=== PATIENT | male | born 1955 | race Caucasian/White ===

== ENCOUNTER 2020-11-10 16:32 | Inpatient (IN) | payer OTHER ==
[2020-11-10 21:52] VITALS: BMI 27.8
[2020-11-10] MEDS ORDERED: ACETAMINOPHEN 325 MG TABLET (FP) PO PRN (22:06)
[2020-11-10] MEDS ORDERED: MAG HYDROX/AL HYDROX/SIMETH 30 ML UNIT-DOSE CUP PO PRN (22:06)
[2020-11-10] MEDS ORDERED: MAGNESIUM HYDROX 2400MG/30ML ORAL SUSPENSION 30 ML CUP PO PRN (22:06)
[2020-11-10] MEDS ORDERED: MAGNESIUM CITRATE 300 ML BOTTLE PO PRN (22:06)
[2020-11-10] MEDS ORDERED: LOPERAMIDE HCL 2 MG CAPSULE PO PRN (22:06)
[2020-11-10] MEDS ORDERED: guaiFENesin 200 MG/10 ML 10 ML UNIT-DOSE CUPS PO PRN (22:06)
[2020-11-10] MEDS ORDERED: IBUPROFEN 400 MG TABLET (FP) PO PRN (22:06)
[2020-11-10] MEDS ORDERED: NICOTINE POLACRILEX 2 MG GUM BC PRN (22:06)
[2020-11-10] MEDS ORDERED: P-EPHED 60MG/TRIPROLIDI 2.5MG TABLET PO PRN (22:06)
[2020-11-11] MEDS: MELATONIN 5 MG TABLETS PO SCH ×2 (00:27→21:00)
[2020-11-11] MEDS: hydrOXYzine PAMOATE 25 MG CAPSULE (FP) PO SCH ×5 (06:47→21:00)
[2020-11-11] MEDS: TAMSULOSIN HCL 0.4 MG CAP PO SCH (08:20)
[2020-11-11] MEDS ORDERED: NIFEDIPINE 30 MG PO SCH (10:00)
[2020-11-11] MEDS ORDERED: TAMSULOSIN HCL 0.4 MG CAP PO SCH (10:00)
[2020-11-11 10:08] LABS: HEMATOCRIT 37.5 % (35.4-49); HEMOGLOBIN 12.4 GM/dL (11.7-16.9); MCH 28.3 pg (25.7-33.7); MCHC 33.1 g/dl (32.0-35.9); MEAN CELL VOLUME 85.5 fl (80-96); MEAN PLT VOLUME 9.5 fl (7.5-11.1); PLATELET COUNT 276 K/MM3 (134-434); RBC 4.38 M/mm3 (4.00-5.60); RDW 14.2 % (11.9-15.9); WHITE BLOOD COUNT 8.6 K/mm3 (4.0-10.0)
[2020-11-11 10:13] LABS: ALBUMIN 3.3 g/dl (3.4-5.0); CALCIUM 8.9 mg/dL (8.5-10.1)
[2020-11-11 10:17] LABS: CREATININE 1.2 mg/dL (0.55-1.3)
[2020-11-11 10:18] LABS: TOT PROT 7.2 g/dl (6.4-8.2)
[2020-11-11 10:21] LABS: BILIRUBIN,TOTAL 0.2 mg/dL (0.2-1)
[2020-11-11] MEDS: NIFEdipine E.R. 30 MG TABLET PO SCH (10:21)
[2020-11-11] MEDS: PANTOPRAZOLE 20 MG TABLET PO SCH (10:21)
[2020-11-11] MEDS: PRENATAL VITAMINS W/ FOLIC ACID TABLET (FP) PO SCH (10:21)
[2020-11-11] MEDS: ASPIRIN 81 MG CHEWABLE TABLETS PO SCH (10:21)
[2020-11-11] MEDS: NICOTINE 7 MG/24 HOURS TOPICAL PATCH TD SCH (10:22)
[2020-11-11] MEDS: FINASTERIDE 5 MG TABLET (FP) PO SCH (12:14)
[2020-11-11] MEDS ORDERED: PT OWN MED DRAWER 7, Y5N ONE (16:00)
[2020-11-11 20:34] LABS: URINE APPEARANCE CLEAR; URINE BILIRUBIN NEGATIVE (NEGATIVE); URINE COLOR YELLOW; URINE GLUCOSE (UA) 3+ (NEGATIVE); URINE KETONE NEGATIVE (NEGATIVE); URINE LEUK ESTERASE NEGATIVE (NEGATIVE); URINE NITRITE NEGATIVE (NEGATIVE); URINE PROTEIN NEGATIVE (NEGATIVE); URINE UROBILINOGEN 0.2 mg/dL (0.2-1.0)
[2020-11-11] MEDS: THIAMINE HCL 100 MG TABLET (FP) PO SCH (21:00)
[2020-11-11] MEDS: INSULIN GLARGINE SQ SCH (21:03)
[2020-11-12] MEDS: hydrOXYzine PAMOATE 25 MG CAPSULE (FP) PO SCH ×5 (06:26→21:33)
[2020-11-12] MEDS: TAMSULOSIN HCL 0.4 MG CAP PO SCH (07:50)
[2020-11-12] MEDS: FINASTERIDE 5 MG TABLET (FP) PO SCH (10:22)
[2020-11-12] MEDS: ASPIRIN 81 MG CHEWABLE TABLETS PO SCH (10:22)
[2020-11-12] MEDS: PRENATAL VITAMINS W/ FOLIC ACID TABLET (FP) PO SCH (10:23)
[2020-11-12] MEDS: PANTOPRAZOLE 20 MG TABLET PO SCH (10:23)
[2020-11-12] MEDS: NICOTINE 7 MG/24 HOURS TOPICAL PATCH TD SCH (10:23)
[2020-11-12] MEDS: NIFEdipine E.R. 30 MG TABLET PO SCH (14:22)
[2020-11-12] MEDS ORDERED: PT OWN MED DRAWER 7, Y5N ONE (19:03)
[2020-11-12] MEDS: INSULIN GLARGINE SQ SCH (20:59)
[2020-11-12] MEDS: MELATONIN 5 MG TABLETS PO SCH (21:01)
[2020-11-12] MEDS: THIAMINE HCL 100 MG TABLET (FP) PO SCH (21:01)
[2020-11-13] MEDS: hydrOXYzine PAMOATE 25 MG CAPSULE (FP) PO SCH ×2 (06:25→10:25)
[2020-11-13] MEDS: TAMSULOSIN HCL 0.4 MG CAP PO SCH (07:49)
[2020-11-13] MEDS: PRENATAL VITAMINS W/ FOLIC ACID TABLET (FP) PO SCH (10:24)
[2020-11-13] MEDS: ASPIRIN 81 MG CHEWABLE TABLETS PO SCH (10:25)
[2020-11-13] MEDS: FINASTERIDE 5 MG TABLET (FP) PO SCH (10:25)
[2020-11-13] MEDS: PANTOPRAZOLE 20 MG TABLET PO SCH (10:25)
[2020-11-13] MEDS: NIFEdipine E.R. 30 MG TABLET PO SCH (10:25)
[2020-11-13] MEDS: NICOTINE 7 MG/24 HOURS TOPICAL PATCH TD SCH (10:25)
[2020-11-13] MEDS ORDERED: INSULIN (NOVOLOG) ASPART 100 UNITS/ML 10ML VIAL SQ ONE (12:45)
[2020-11-13] MEDS: METHOCARBAMOL 500 MG TABLET PO SCH ×3 (14:26→21:05)
[2020-11-13] MEDS ORDERED: INSULIN (NOVOLOG) ASPART 100 UNITS/ML 10ML VIAL ONE ×2 (16:29→21:10)
[2020-11-13] MEDS: INSULIN SLIDING SCALE (NOVOLOG) 1 VIAL SQ SCH ×2 (16:30→21:11)
[2020-11-13] MEDS: MELATONIN 5 MG TABLETS PO SCH (21:05)
[2020-11-13] MEDS: THIAMINE HCL 100 MG TABLET (FP) PO SCH (21:05)
[2020-11-13] MEDS: INSULIN GLARGINE SQ SCH (21:11)
[2020-11-14 06:05] LABS: SARS-CoV-2 NAA Not Detected (Not Detected)
[2020-11-14] MEDS: INSULIN SLIDING SCALE (NOVOLOG) 1 VIAL SQ SCH ×4 (06:34→21:05)
[2020-11-14] MEDS: TAMSULOSIN HCL 0.4 MG CAP PO SCH (06:34)
[2020-11-14] MEDS: ASPIRIN 81 MG CHEWABLE TABLETS PO SCH (06:34)
[2020-11-14] MEDS: hydrOXYzine PAMOATE 25 MG CAPSULE (FP) PO SCH ×5 (06:34→21:04)
[2020-11-14] MEDS: NICOTINE 7 MG/24 HOURS TOPICAL PATCH TD SCH (06:35)
[2020-11-14] MEDS: FINASTERIDE 5 MG TABLET (FP) PO SCH (06:35)
[2020-11-14] MEDS: PANTOPRAZOLE 20 MG TABLET PO SCH (06:35)
[2020-11-14] MEDS: PRENATAL VITAMINS W/ FOLIC ACID TABLET (FP) PO SCH (06:35)
[2020-11-14] MEDS: NIFEdipine E.R. 30 MG TABLET PO SCH (06:35)
[2020-11-14] MEDS: METHOCARBAMOL 500 MG TABLET PO SCH ×4 (10:30→21:02)
[2020-11-14] MEDS ORDERED: INSULIN (NOVOLOG) ASPART 100 UNITS/ML 10ML VIAL ONE ×2 (11:47→16:27)
[2020-11-14] MEDS ORDERED: BUPRENORPHINE/NALOXONE 2 MG/0.5 MG FILM PACKET SL ONE (14:52)
[2020-11-14] MEDS: MELATONIN 5 MG TABLETS PO SCH (21:02)
[2020-11-14] MEDS: THIAMINE HCL 100 MG TABLET (FP) PO SCH (21:02)
[2020-11-14] MEDS: INSULIN GLARGINE SQ SCH (21:04)
[2020-11-15] MEDS: ASPIRIN 81 MG CHEWABLE TABLETS PO SCH (07:03)
[2020-11-15] MEDS: TAMSULOSIN HCL 0.4 MG CAP PO SCH (07:03)
[2020-11-15] MEDS: PANTOPRAZOLE 20 MG TABLET PO SCH (07:04)
[2020-11-15] MEDS: PRENATAL VITAMINS W/ FOLIC ACID TABLET (FP) PO SCH (07:04)
[2020-11-15] MEDS: FINASTERIDE 5 MG TABLET (FP) PO SCH (07:04)
[2020-11-15] MEDS: hydrOXYzine PAMOATE 25 MG CAPSULE (FP) PO SCH ×5 (07:04→21:11)
[2020-11-15] MEDS: NICOTINE 7 MG/24 HOURS TOPICAL PATCH TD SCH (07:04)
[2020-11-15] MEDS: NIFEdipine E.R. 30 MG TABLET PO SCH (07:04)
[2020-11-15] MEDS: INSULIN SLIDING SCALE (NOVOLOG) 1 VIAL SQ SCH ×4 (08:02→22:03)
[2020-11-15] MEDS: BUPRENORPHINE/NALOXONE 2 MG/0.5 MG FILM PACKET SL SCH (10:27)
[2020-11-15] MEDS: METHOCARBAMOL 500 MG TABLET PO SCH ×4 (10:27→21:10)
[2020-11-15] MEDS ORDERED: INSULIN (NOVOLOG) ASPART 100 UNITS/ML 10ML VIAL ONE ×3 (12:02→22:03)
[2020-11-15] MEDS: MELATONIN 5 MG TABLETS PO SCH (21:10)
[2020-11-15] MEDS: THIAMINE HCL 100 MG TABLET (FP) PO SCH (21:11)
[2020-11-15] MEDS: INSULIN GLARGINE SQ SCH (21:16)
[2020-11-16] MEDS: FINASTERIDE 5 MG TABLET (FP) PO SCH (06:40)
[2020-11-16] MEDS: hydrOXYzine PAMOATE 25 MG CAPSULE (FP) PO SCH ×5 (06:40→21:38)
[2020-11-16] MEDS: PRENATAL VITAMINS W/ FOLIC ACID TABLET (FP) PO SCH (06:40)
[2020-11-16] MEDS: NICOTINE 7 MG/24 HOURS TOPICAL PATCH TD SCH (06:40)
[2020-11-16] MEDS: ASPIRIN 81 MG CHEWABLE TABLETS PO SCH (06:40)
[2020-11-16] MEDS: PANTOPRAZOLE 20 MG TABLET PO SCH (06:40)
[2020-11-16] MEDS: NIFEdipine E.R. 30 MG TABLET PO SCH (06:40)
[2020-11-16] MEDS: TAMSULOSIN HCL 0.4 MG CAP PO SCH (06:40)
[2020-11-16] MEDS: INSULIN SLIDING SCALE (NOVOLOG) 1 VIAL SQ SCH ×4 (07:35→21:42)
[2020-11-16] MEDS: BUPRENORPHINE/NALOXONE 2 MG/0.5 MG FILM PACKET SL SCH (09:38)
[2020-11-16] MEDS: METHOCARBAMOL 500 MG TABLET PO SCH ×4 (09:39→21:40)
[2020-11-16] MEDS ORDERED: INSULIN (NOVOLOG) ASPART 100 UNITS/ML 10ML VIAL ONE ×2 (12:07→22:03)
[2020-11-16] MEDS: THIAMINE HCL 100 MG TABLET (FP) PO SCH (21:38)
[2020-11-16] MEDS: MELATONIN 5 MG TABLETS PO SCH (21:38)
[2020-11-16] MEDS: INSULIN GLARGINE SQ SCH (21:40)
[2020-11-17] MEDS: PANTOPRAZOLE 20 MG TABLET PO SCH (06:03)
[2020-11-17] MEDS: NIFEdipine E.R. 30 MG TABLET PO SCH (06:03)
[2020-11-17] MEDS: TAMSULOSIN HCL 0.4 MG CAP PO SCH (06:03)
[2020-11-17] MEDS: hydrOXYzine PAMOATE 25 MG CAPSULE (FP) PO SCH ×5 (06:03→21:02)
[2020-11-17] MEDS: ASPIRIN 81 MG CHEWABLE TABLETS PO SCH (06:03)
[2020-11-17] MEDS: NICOTINE 7 MG/24 HOURS TOPICAL PATCH TD SCH (06:03)
[2020-11-17] MEDS: FINASTERIDE 5 MG TABLET (FP) PO SCH (06:04)
[2020-11-17] MEDS: PRENATAL VITAMINS W/ FOLIC ACID TABLET (FP) PO SCH (06:04)
[2020-11-17] MEDS: INSULIN SLIDING SCALE (NOVOLOG) 1 VIAL SQ SCH ×4 (06:06→21:02)
[2020-11-17] MEDS: METHOCARBAMOL 500 MG TABLET PO SCH ×4 (10:18→21:02)
[2020-11-17] MEDS: BUPRENORPHINE/NALOXONE 2 MG/0.5 MG FILM PACKET SL SCH ×2 (10:19→20:59)
[2020-11-17] MEDS ORDERED: INSULIN (NOVOLOG) ASPART 100 UNITS/ML 10ML VIAL ONE ×2 (16:59→21:48)
[2020-11-17] MEDS: INSULIN GLARGINE SQ SCH (21:02)
[2020-11-17] MEDS: MELATONIN 5 MG TABLETS PO SCH (21:02)
[2020-11-17] MEDS: THIAMINE HCL 100 MG TABLET (FP) PO SCH (21:02)
[2020-11-18] MEDS: PRENATAL VITAMINS W/ FOLIC ACID TABLET (FP) PO SCH (06:28)
[2020-11-18] MEDS: TAMSULOSIN HCL 0.4 MG CAP PO SCH (06:28)
[2020-11-18] MEDS: ASPIRIN 81 MG CHEWABLE TABLETS PO SCH (06:28)
[2020-11-18] MEDS: hydrOXYzine PAMOATE 25 MG CAPSULE (FP) PO SCH ×5 (06:28→21:00)
[2020-11-18] MEDS: PANTOPRAZOLE 20 MG TABLET PO SCH (06:28)
[2020-11-18] MEDS: NICOTINE 7 MG/24 HOURS TOPICAL PATCH TD SCH (06:28)
[2020-11-18] MEDS: NIFEdipine E.R. 30 MG TABLET PO SCH (06:28)
[2020-11-18] MEDS: FINASTERIDE 5 MG TABLET (FP) PO SCH (06:28)
[2020-11-18] MEDS: INSULIN SLIDING SCALE (NOVOLOG) 1 VIAL SQ SCH ×4 (06:31→21:02)
[2020-11-18] MEDS ORDERED: PT OWN MED DRAWER 7, Y5N ONE ×4 (09:07→19:54)
[2020-11-18] MEDS: BUPRENORPHINE/NALOXONE 2 MG/0.5 MG FILM PACKET SL SCH ×2 (10:26→20:58)
[2020-11-18] MEDS: METHOCARBAMOL 500 MG TABLET PO SCH ×4 (10:26→21:00)
[2020-11-18] MEDS ORDERED: INSULIN (NOVOLOG) ASPART 100 UNITS/ML 10ML VIAL ONE ×3 (12:14→21:42)
[2020-11-18] MEDS: MELATONIN 5 MG TABLETS PO SCH (21:00)
[2020-11-18] MEDS: THIAMINE HCL 100 MG TABLET (FP) PO SCH (21:00)
[2020-11-18] MEDS: INSULIN GLARGINE SQ SCH (21:03)
[2020-11-19] MEDS: ASPIRIN 81 MG CHEWABLE TABLETS PO SCH (06:21)
[2020-11-19] MEDS: NIFEdipine E.R. 30 MG TABLET PO SCH (06:21)
[2020-11-19] MEDS: TAMSULOSIN HCL 0.4 MG CAP PO SCH (06:21)
[2020-11-19] MEDS: PANTOPRAZOLE 20 MG TABLET PO SCH (06:21)
[2020-11-19] MEDS: NICOTINE 7 MG/24 HOURS TOPICAL PATCH TD SCH (06:21)
[2020-11-19] MEDS: PRENATAL VITAMINS W/ FOLIC ACID TABLET (FP) PO SCH (06:21)
[2020-11-19] MEDS: hydrOXYzine PAMOATE 25 MG CAPSULE (FP) PO SCH ×5 (06:21→21:26)
[2020-11-19] MEDS: FINASTERIDE 5 MG TABLET (FP) PO SCH (06:21)
[2020-11-19] MEDS: INSULIN SLIDING SCALE (NOVOLOG) 1 VIAL SQ SCH ×4 (06:23→21:29)
[2020-11-19] MEDS: BUPRENORPHINE/NALOXONE 2 MG/0.5 MG FILM PACKET SL SCH ×2 (10:27→19:49)
[2020-11-19] MEDS: METHOCARBAMOL 500 MG TABLET PO SCH ×4 (10:27→21:26)
[2020-11-19] MEDS ORDERED: INSULIN (NOVOLOG) ASPART 100 UNITS/ML 10ML VIAL ONE ×2 (11:53→21:40)
[2020-11-19] MEDS ORDERED: PT OWN MED DRAWER 7, Y5N ONE (16:08)
[2020-11-19] MEDS: THIAMINE HCL 100 MG TABLET (FP) PO SCH (21:26)
[2020-11-19] MEDS: MELATONIN 5 MG TABLETS PO SCH (21:26)
[2020-11-19] MEDS: INSULIN GLARGINE SQ SCH (21:29)
[2020-11-20] MEDS: NIFEdipine E.R. 30 MG TABLET PO SCH (06:48)
[2020-11-20] MEDS: FINASTERIDE 5 MG TABLET (FP) PO SCH (06:48)
[2020-11-20] MEDS: ASPIRIN 81 MG CHEWABLE TABLETS PO SCH (06:48)
[2020-11-20] MEDS: hydrOXYzine PAMOATE 25 MG CAPSULE (FP) PO SCH ×5 (06:48→21:51)
[2020-11-20] MEDS: PANTOPRAZOLE 20 MG TABLET PO SCH (06:48)
[2020-11-20] MEDS: TAMSULOSIN HCL 0.4 MG CAP PO SCH (06:49)
[2020-11-20] MEDS: NICOTINE 7 MG/24 HOURS TOPICAL PATCH TD SCH (06:49)
[2020-11-20] MEDS: PRENATAL VITAMINS W/ FOLIC ACID TABLET (FP) PO SCH (06:51)
[2020-11-20] MEDS: INSULIN SLIDING SCALE (NOVOLOG) 1 VIAL SQ SCH ×4 (07:05→21:56)
[2020-11-20] MEDS ORDERED: INSULIN (NOVOLOG) ASPART 100 UNITS/ML 10ML VIAL ONE ×4 (07:12→22:22)
[2020-11-20] MEDS: METHOCARBAMOL 500 MG TABLET PO SCH ×4 (10:33→21:51)
[2020-11-20] MEDS: BUPRENORPHINE/NALOXONE 2 MG/0.5 MG FILM PACKET SL SCH ×2 (10:33→20:15)
[2020-11-20] MEDS: THIAMINE HCL 100 MG TABLET (FP) PO SCH (21:51)
[2020-11-20] MEDS: MELATONIN 5 MG TABLETS PO SCH (21:51)
[2020-11-20] MEDS: INSULIN GLARGINE SQ SCH (21:53)
[2020-11-21] MEDS ORDERED: INSULIN (NOVOLOG) ASPART 100 UNITS/ML 10ML VIAL ONE ×5 (03:50→21:43)
[2020-11-21] MEDS: ASPIRIN 81 MG CHEWABLE TABLETS PO SCH (06:23)
[2020-11-21] MEDS: PRENATAL VITAMINS W/ FOLIC ACID TABLET (FP) PO SCH (06:23)
[2020-11-21] MEDS: NICOTINE 7 MG/24 HOURS TOPICAL PATCH TD SCH (06:24)
[2020-11-21] MEDS: NIFEdipine E.R. 30 MG TABLET PO SCH (06:24)
[2020-11-21] MEDS: hydrOXYzine PAMOATE 25 MG CAPSULE (FP) PO SCH ×5 (06:24→21:01)
[2020-11-21] MEDS: TAMSULOSIN HCL 0.4 MG CAP PO SCH (06:24)
[2020-11-21] MEDS: FINASTERIDE 5 MG TABLET (FP) PO SCH (06:24)
[2020-11-21] MEDS: PANTOPRAZOLE 20 MG TABLET PO SCH (06:24)
[2020-11-21] MEDS: INSULIN SLIDING SCALE (NOVOLOG) 1 VIAL SQ SCH ×4 (06:26→21:01)
[2020-11-21] MEDS: BUPRENORPHINE/NALOXONE 2 MG/0.5 MG FILM PACKET SL SCH ×3 (10:13→20:57)
[2020-11-21] MEDS: METHOCARBAMOL 500 MG TABLET PO SCH ×4 (10:13→21:01)
[2020-11-21] MEDS: MELATONIN 5 MG TABLETS PO SCH (21:01)
[2020-11-21] MEDS: THIAMINE HCL 100 MG TABLET (FP) PO SCH (21:01)
[2020-11-21] MEDS: INSULIN GLARGINE SQ SCH (21:02)
[2020-11-22] MEDS ORDERED: INSULIN (NOVOLOG) ASPART 100 UNITS/ML 10ML VIAL ONE ×4 (06:14→21:36)
[2020-11-22] MEDS: hydrOXYzine PAMOATE 25 MG CAPSULE (FP) PO SCH ×5 (06:27→21:01)
[2020-11-22] MEDS: PRENATAL VITAMINS W/ FOLIC ACID TABLET (FP) PO SCH (06:27)
[2020-11-22] MEDS: ASPIRIN 81 MG CHEWABLE TABLETS PO SCH (06:27)
[2020-11-22] MEDS: FINASTERIDE 5 MG TABLET (FP) PO SCH (06:27)
[2020-11-22] MEDS: NICOTINE 7 MG/24 HOURS TOPICAL PATCH TD SCH (06:27)
[2020-11-22] MEDS: NIFEdipine E.R. 30 MG TABLET PO SCH (06:27)
[2020-11-22] MEDS: TAMSULOSIN HCL 0.4 MG CAP PO SCH (06:27)
[2020-11-22] MEDS: PANTOPRAZOLE 20 MG TABLET PO SCH (06:27)
[2020-11-22] MEDS: INSULIN SLIDING SCALE (NOVOLOG) 1 VIAL SQ SCH ×4 (06:29→21:01)
[2020-11-22] MEDS: METHOCARBAMOL 500 MG TABLET PO SCH ×4 (09:14→21:01)
[2020-11-22] MEDS: BUPRENORPHINE/NALOXONE 2 MG/0.5 MG FILM PACKET SL SCH ×3 (09:14→20:57)
[2020-11-22] MEDS: INSULIN GLARGINE SQ SCH (21:01)
[2020-11-22] MEDS: MELATONIN 5 MG TABLETS PO SCH (21:01)
[2020-11-22] MEDS: THIAMINE HCL 100 MG TABLET (FP) PO SCH (21:01)
[2020-11-23] MEDS: NIFEdipine E.R. 30 MG TABLET PO SCH (06:23)
[2020-11-23] MEDS: hydrOXYzine PAMOATE 25 MG CAPSULE (FP) PO SCH ×5 (06:23→21:39)
[2020-11-23] MEDS: NICOTINE 7 MG/24 HOURS TOPICAL PATCH TD SCH (06:23)
[2020-11-23] MEDS: TAMSULOSIN HCL 0.4 MG CAP PO SCH (06:23)
[2020-11-23] MEDS: ASPIRIN 81 MG CHEWABLE TABLETS PO SCH (06:23)
[2020-11-23] MEDS: PANTOPRAZOLE 20 MG TABLET PO SCH (06:24)
[2020-11-23] MEDS: PRENATAL VITAMINS W/ FOLIC ACID TABLET (FP) PO SCH (06:24)
[2020-11-23] MEDS: FINASTERIDE 5 MG TABLET (FP) PO SCH (06:24)
[2020-11-23] MEDS: INSULIN SLIDING SCALE (NOVOLOG) 1 VIAL SQ SCH ×4 (06:25→21:45)
[2020-11-23] MEDS: METHOCARBAMOL 500 MG TABLET PO SCH ×4 (09:42→21:39)
[2020-11-23] MEDS: BUPRENORPHINE/NALOXONE 2 MG/0.5 MG FILM PACKET SL SCH ×3 (09:42→19:37)
[2020-11-23] MEDS ORDERED: INSULIN (NOVOLOG) ASPART 100 UNITS/ML 10ML VIAL ONE ×3 (11:31→21:50)
[2020-11-23] MEDS: THIAMINE HCL 100 MG TABLET (FP) PO SCH (21:39)
[2020-11-23] MEDS: MELATONIN 5 MG TABLETS PO SCH (21:39)
[2020-11-23] MEDS: INSULIN GLARGINE SQ SCH (21:45)
[2020-11-24] MEDS: ASPIRIN 81 MG CHEWABLE TABLETS PO SCH (06:23)
[2020-11-24] MEDS: FINASTERIDE 5 MG TABLET (FP) PO SCH (06:23)
[2020-11-24] MEDS: NICOTINE 7 MG/24 HOURS TOPICAL PATCH TD SCH (06:23)
[2020-11-24] MEDS: NIFEdipine E.R. 30 MG TABLET PO SCH (06:23)
[2020-11-24] MEDS: PANTOPRAZOLE 20 MG TABLET PO SCH (06:23)
[2020-11-24] MEDS: hydrOXYzine PAMOATE 25 MG CAPSULE (FP) PO SCH (06:23)
[2020-11-24] MEDS: PRENATAL VITAMINS W/ FOLIC ACID TABLET (FP) PO SCH (06:23)
[2020-11-24] MEDS: TAMSULOSIN HCL 0.4 MG CAP PO SCH (06:23)
[2020-11-24] MEDS: INSULIN SLIDING SCALE (NOVOLOG) 1 VIAL SQ SCH (06:25)
[2020-11-24 07:02] VITALS: BP 125/67; PULSE 88; TEMP 97.7
[2020-11-24] MEDS ORDERED: PT OWN MED DRAWER 7, Y5N ONE (08:42)
[2020-11-24] MEDS: BUPRENORPHINE/NALOXONE 2 MG/0.5 MG FILM PACKET SL SCH (09:06)
[2020-11-24] MEDS: METHOCARBAMOL 500 MG TABLET PO SCH (09:06)
== END 2020-11-24 09:23 | disposition home or self-care (01) | DRG 772 ==
LOC: YASAS 16:32 → Y3W 23:18
PROVIDERS: ADMIT Allergy & Immunology; ATTEND Allergy & Immunology
PROC: HZ42ZZZ Group Counseling for Substance Abuse Treatment, Cognitive-Behavioral (ICD-10-PCS; principal; 2020-11-10)
DX: F11.20 Opioid dependence, uncomplicated (principal); I10 Essential (primary) hypertension; E11.9 Type 2 diabetes mellitus without complications; Z79.4 Long term (current) use of insulin; R60.0 Localized edema; Z98.890 Other specified postprocedural states; Z99.89 Dependence on other enabling machines and devices
CPT/HCPCS: 36415; 80053; 81003; 82962; 85027; 86780; C9803; U0003; U0005